=== PATIENT | female | born 1930 | race Caucasian/White ===

== ENCOUNTER → 2016-04-08 | Outpatient (REF) | payer OTHER, MEDICAID ==
[~2016-04-08] MED LIST: /ESCI20TA OR; /FENT50PA TD; /FENT75PA TD; /MOXI40TA OR; /PANT40TA OR; ACET-654 PO; ACET65TA OR; ALBU0.63 INH; ALBU83IN INH; AMBI10TA OR; AMBI5TAB OR; ANEXSIA PO; ARIC10TA PO; ARIC5TAB OR; ARTH1TAB PO; ASPI325T OR; ASPI325T5 PO; ATIV0.5T3 PO; BACL10TA2 OR; CARV25TA PO; CIPR250T2 PO; CIPR25SS OR; COLA100C2 OR; COLA50CA3 PO; CORE25TA PO; CRES5TAB PO; DIOV80TA OR; DIOV80TA PO; DIOVAN PO; DIOVAN/HCTZ PO; DOCU100C PO; DULC10SU9 PR; FERR325T OR; FLEEENE4 PR; FOLI1TAB OR; FURO20TA2 OR; GABA-279 PO; GABAPOW41 PO; GLUC5TAB3 PO; HCTZ PO; HUMA100I SC; IBUP200C PO; IMDU30TA PO; IMDU60TA PO; INDA1.252 PO; INDA125TA PO; ISOS30TA4 OR; ISOS30TAB PO; LASI20TA OR; LEVA500T PO; LEVO75TA2 OR; LEVO75TA4 PO; LIDO1DIS2 TD; LIDO5DIS EX; LOPR50TA OR; LOPR50TA PO; LOPRESSOR PO; Lioresal PO; MAGN64TASA PO; MAGNESIUM OXIDE PO; MAVI4TAB OR; METF500T PO; METF500T4 OR; MIRA255PW PO; MIRA3350 PO; MUCI600T34 PO; MYLASSUD PO; NEUR100C OR; NEUR100C PO; NITR0.3S SL; NITR0.4S SL; NORV5TAB OR; NYSTPOW TOP; Neurontin PO; Norvasc PO; OMEP20TA7 OR; PERC5TAB8 OR; PERC5TAB8 PO; POLYBTL PO; POTA10CA32 PO; RISP1TAB3 PO; ROSU10TA OR; ROSU10TA PO; SENN8.6T5 OR; SENO8.6T5 OR; SYNT100T PO; TOPR25TA PO; TRAM50TA2 OR; TRAZ25TA PO; TRAZO50TA PO; TUMS500C OR; VALS80CA OR; VITA100027 OR; VITA100T OR; XANA0.5T OR; [UNRECOGNIZED DRUG - CODE] PO; [UNRECOGNIZED DRUG - CODE] PO; [UNRECOGNIZED DRUG - CODE] PO; lozol PO; oxycodone hcl PO; pradaxa PO; tramadol PO
== END ==
LOC: SKLAB7 07:00
PROVIDERS: ATTEND Family Medicine
DX: E78.5 Hyperlipidemia, unspecified (principal)

== ENCOUNTER → 2016-04-21 | Outpatient (REF) | payer OTHER, MEDICAID | LOC: SKLAB8 00:35 | PROVIDERS: ATTEND Family Medicine | DX: R19.7 Diarrhea, unspecified (principal) ==

== ENCOUNTER → 2016-05-06 | Outpatient (REF) | payer OTHER, MEDICAID ==
[2016-05-06 09:32] LABS: MEAN CORPUSCULAR HEMOGLOBIN 30.2 pg (27.0-33.0); MEAN CORPUSCULAR HGB CONC 32.1 g/dl (32.0-36.5); MEAN CORPUSCULAR VOLUME 94.2 fl (80.0-96.0); RED CELL DISTRIBUTION WIDTH 12.9 % (11.5-14.5); WHITE BLOOD COUNT 11.7 K/mm3 (4.0-10.0)
[2016-05-06 10:05] LABS: ALBUMIN 3.2 GM/DL (3.2-5.2); ALBUMIN/GLOBULIN RATIO 0.91 (1.00-1.93); BILIRUBIN,TOTAL 0.2 MG/DL (0.2-1.0); CALCIUM LEVEL 9.6 MG/DL (8.8-10.2); CREATININE FOR GFR 1.14 MG/DL (0.55-1.02); GLOMERULAR FILTRATION RATE 48.3 (>32); POTASSIUM SERUM 4.9 MEQ/L (3.5-5.1); TOTAL PROTEIN 6.7 GM/DL (6.4-8.2)
== END ==
LOC: SKLAB7 07:00
PROVIDERS: ATTEND Family Medicine
DX: D64.9 Anemia, unspecified (principal); E11.9 Type 2 diabetes mellitus without complications

== ENCOUNTER → 2016-05-17 | Outpatient (REF) | payer OTHER, MEDICAID | LOC: SKLAB7 10:53 → M LAB REF 10:53 | PROVIDERS: ATTEND Family Medicine | DX: D64.9 Anemia, unspecified (principal); E11.9 Type 2 diabetes mellitus without complications ==

== ENCOUNTER → 2016-06-03 | Outpatient (REF) | payer OTHER, MEDICAID | LOC: SKLAB7 07:00 | PROVIDERS: ATTEND Family Medicine | DX: E03.9 Hypothyroidism, unspecified (principal) ==

== ENCOUNTER → 2016-08-05 | Outpatient (REF) | payer MEDICARE, MEDICAID, OTHER ==
[~2016-08-05] MED LIST changes: +CRES10TA32 PO
[2016-08-05 09:11] LABS: MEAN CORPUSCULAR HGB CONC 32.5 g/dl (32.0-36.5); MEAN CORPUSCULAR VOLUME 95.5 fl (80.0-96.0); RED CELL DISTRIBUTION WIDTH 12.5 % (11.5-14.5); WHITE BLOOD COUNT 10.7 K/mm3 (4.0-10.0)
[2016-08-05 09:31] LABS: ALBUMIN/GLOBULIN RATIO 0.71 (1.00-1.93); BILIRUBIN,TOTAL 0.2 MG/DL (0.2-1.0); CALCIUM LEVEL 9.7 MG/DL (8.8-10.2); CREATININE FOR GFR 1.1 MG/DL (0.55-1.02); GLOMERULAR FILTRATION RATE 50.3 (>32); POTASSIUM SERUM 4.6 MEQ/L (3.5-5.1); TOTAL PROTEIN 7.2 GM/DL (6.4-8.2)
== END ==
LOC: SKLAB7 10:39
PROVIDERS: ATTEND Family Medicine
DX: E87.6 Hypokalemia (principal); E11.9 Type 2 diabetes mellitus without complications; I10 Essential (primary) hypertension

== ENCOUNTER → 2016-10-06 | Outpatient (REF) | payer MEDICARE, MEDICAID, OTHER ==
[~2016-10-06] MED LIST changes: -ACET-654 PO; +ACET1TAB17 PO; +ALPR0.25 PO; +ARIC1TAB2 PO; +BACITAB PO; +CLEO150C PO; +DIFL200T PO; -DOCU100C PO; +DOCU100C16 PO; +DULC10SU2 PR; +HUMA100I3 SC; -IBUP200C PO; +IBUP200C10 PO; +LEVA1TAB2 PO; -LEVA500T PO; +LEVE1INJ5 SC; -METF500T PO; +METF500T13 PO; -MUCI600T34 PO; +MUCI600T37 PO; +SENO8.6T5 PO
== END ==
LOC: SKLAB7 18:35
PROVIDERS: ATTEND Family Medicine
DX: R41.82 Altered mental status, unspecified (principal); Z79.899 Other long term (current) drug therapy

== ENCOUNTER → 2016-10-06 | Outpatient (REF) | payer MEDICARE, MEDICAID, OTHER | LOC: SKLAB7 23:11 | PROVIDERS: ATTEND Family Medicine | DX: R73.09 Other abnormal glucose (principal) ==

== ENCOUNTER → 2016-10-07 | Outpatient (REF) | payer MEDICARE, MEDICAID, OTHER ==
[2016-10-07 10:41] LABS: BASO % 0.2 % (0.0-1.0); EOS % 0.1 % (0.0-3.0); LARGE UNSTAINED CELL # 0.2 K/mm3 (0.0-0.4); LYMPH # 0.6 K/mm3 (1.5-4.5); LYMPH % 3.1 % (24.0-44.0); MEAN CORPUSCULAR HEMOGLOBIN 31.8 pg (27.0-33.0); MEAN CORPUSCULAR HGB CONC 33.8 g/dl (32.0-36.5); MEAN CORPUSCULAR VOLUME 94.3 fl (80.0-96.0); MONO # 0.4 K/mm3 (0.0-0.8); MONO % 2.4 % (0.0-5.0); NEUTROPHILS # 14.8 K/mm3 (1.8-7.7); NEUTROPHILS % 93.3 % (36.0-66.0); PLATELET COUNT, AUTOMATED 309 k/mm3 (150-450); RED CELL DISTRIBUTION WIDTH 13.2 % (11.5-14.5); WHITE BLOOD COUNT 15.9 K/mm3 (4.0-10.0)
[2016-10-07 11:13] LABS: ALBUMIN 2.7 GM/DL (3.2-5.2); ALBUMIN/GLOBULIN RATIO 0.57 (1.00-1.93); BILIRUBIN,TOTAL 0.3 MG/DL (0.2-1.0); CALCIUM LEVEL 10.7 MG/DL (8.8-10.2); CREATININE FOR GFR 1.85 MG/DL (0.55-1.02); GLOMERULAR FILTRATION RATE 27.6 (>32); POTASSIUM SERUM 3.5 MEQ/L (3.5-5.1); TOTAL PROTEIN 7.4 GM/DL (6.4-8.2)
== END ==
LOC: SKLAB7 09:26
PROVIDERS: ATTEND Family Medicine
DX: A41.9 Sepsis, unspecified organism (principal)

== ENCOUNTER → 2016-10-08 | Outpatient (REF) | payer MEDICARE, MEDICAID, OTHER ==
[2016-10-08 14:07] LABS: CALCIUM LEVEL 9.8 MG/DL (8.8-10.2); CREATININE FOR GFR 2.93 MG/DL (0.55-1.02); GLOMERULAR FILTRATION RATE 16.2 (>32); POTASSIUM SERUM 3.8 MEQ/L (3.5-5.1)
== END ==
LOC: SKLAB7 12:39
PROVIDERS: ATTEND Family Medicine
DX: E86.0 Dehydration (principal)

== ENCOUNTER → 2016-10-10 | Outpatient (REF) | payer MEDICARE, MEDICAID, OTHER ==
[2016-10-10 07:19] LABS: CALCIUM LEVEL 8.8 MG/DL (8.8-10.2); CREATININE FOR GFR 2.81 MG/DL (0.55-1.02); POTASSIUM SERUM 3.4 MEQ/L (3.5-5.1)
[2016-10-10 10:14] LABS: MEAN CORPUSCULAR HEMOGLOBIN 31.4 pg (27.0-33.0); MEAN CORPUSCULAR HGB CONC 33.4 g/dl (32.0-36.5); MEAN CORPUSCULAR VOLUME 93.9 fl (80.0-96.0); RED CELL DISTRIBUTION WIDTH 13.3 % (11.5-14.5); WHITE BLOOD COUNT 13.5 K/mm3 (4.0-10.0)
== END ==
LOC: SKLAB7 04:06
PROVIDERS: ATTEND Family Medicine
DX: N39.0 Urinary tract infection, site not specified (principal); N18.9 Chronic kidney disease, unspecified

== ENCOUNTER → 2016-10-11 | Outpatient (REF) | payer MEDICARE, MEDICAID, OTHER ==
[2016-10-11 07:53] LABS: BASO % 0.2 % (0.0-1.0); EOS # 0.3 K/mm3 (0.0-0.50); EOS % 3.1 % (0.0-3.0); LARGE UNSTAINED CELL # 0.4 K/mm3 (0.0-0.4); LARGE UNSTAINED CELL % 3.3 % (0.0-4.0); LYMPH # 1.5 K/mm3 (1.5-4.5); LYMPH % 10.4 % (24.0-44.0); MEAN CORPUSCULAR HEMOGLOBIN 31.3 pg (27.0-33.0); MEAN CORPUSCULAR HGB CONC 33.3 g/dl (32.0-36.5); MEAN CORPUSCULAR VOLUME 93.9 fl (80.0-96.0); MONO # 0.4 K/mm3 (0.0-0.8); MONO % 3.7 % (0.0-5.0); NEUTROPHILS # 8.5 K/mm3 (1.8-7.7); NEUTROPHILS % 79.4 % (36.0-66.0); PLATELET COUNT, AUTOMATED 242 k/mm3 (150-450); RED CELL DISTRIBUTION WIDTH 13.5 % (11.5-14.5); WHITE BLOOD COUNT 10.7 K/mm3 (4.0-10.0)
[2016-10-11 08:06] LABS: CALCIUM LEVEL 8.4 MG/DL (8.8-10.2); CREATININE FOR GFR 2.43 MG/DL (0.55-1.02); GLOMERULAR FILTRATION RATE 20.1 (>32); POTASSIUM SERUM 3.3 MEQ/L (3.5-5.1)
== END ==
LOC: SKLAB7 07:00
PROVIDERS: ATTEND Family Medicine
DX: N18.9 Chronic kidney disease, unspecified (principal)

== ENCOUNTER → 2016-10-19 | Outpatient (REF) | payer MEDICARE, MEDICAID, OTHER ==
[2016-10-19 09:30] LABS: BASO % 0.4 % (0.0-1.0); EOS # 0.3 K/mm3 (0.0-0.50); EOS % 2.7 % (0.0-3.0); LARGE UNSTAINED CELL # 0.2 K/mm3 (0.0-0.4); LARGE UNSTAINED CELL % 1.3 % (0.0-4.0); LYMPH # 0.7 K/mm3 (1.5-4.5); LYMPH % 6.2 % (24.0-44.0); MEAN CORPUSCULAR HEMOGLOBIN 30.8 pg (27.0-33.0); MEAN CORPUSCULAR HGB CONC 32.6 g/dl (32.0-36.5); MEAN CORPUSCULAR VOLUME 94.5 fl (80.0-96.0); MONO # 0.3 K/mm3 (0.0-0.8); MONO % 2.6 % (0.0-5.0); NEUTROPHILS # 9.7 K/mm3 (1.8-7.7); NEUTROPHILS % 86.8 % (36.0-66.0); PLATELET COUNT, AUTOMATED 506 k/mm3 (150-450); RED CELL DISTRIBUTION WIDTH 13.9 % (11.5-14.5); WHITE BLOOD COUNT 11.2 K/mm3 (4.0-10.0)
[2016-10-19 09:35] LABS: CALCIUM LEVEL 9.8 MG/DL (8.8-10.2); CREATININE FOR GFR 1.41 MG/DL (0.55-1.02); GLOMERULAR FILTRATION RATE 37.7 (>32); POTASSIUM SERUM 4.3 MEQ/L (3.5-5.1)
== END ==
LOC: SKLAB7 07:00
PROVIDERS: ATTEND Family Medicine
DX: A41.9 Sepsis, unspecified organism (principal)

== ENCOUNTER → 2016-10-22 | Outpatient (REF) ==
[2016-10-22 13:05] LABS: MEAN CORPUSCULAR HEMOGLOBIN 31.1 pg (27.0-33.0); MEAN CORPUSCULAR HGB CONC 32.5 g/dl (32.0-36.5); MEAN CORPUSCULAR VOLUME 95.8 fl (80.0-96.0); RED CELL DISTRIBUTION WIDTH 14.4 % (11.5-14.5); WHITE BLOOD COUNT 10.9 K/mm3 (4.0-10.0)
[2016-10-22 13:21] LABS: CALCIUM LEVEL 10.2 MG/DL (8.8-10.2); CREATININE FOR GFR 1.25 MG/DL (0.55-1.02); GLOMERULAR FILTRATION RATE 43.4 (>32); POTASSIUM SERUM 4.4 MEQ/L (3.5-5.1)
== END ==
LOC: SKLAB7 12:21
PROVIDERS: ATTEND Family Medicine
DX: N18.9 Chronic kidney disease, unspecified (principal)

== ENCOUNTER → 2016-10-29 | Outpatient (REF) | payer MEDICARE, OTHER, MEDICAID | LOC: SKLAB7 21:47 | PROVIDERS: ATTEND Family Medicine | DX: R73.09 Other abnormal glucose (principal) ==

== ENCOUNTER → 2016-10-30 | Outpatient (REF) | payer MEDICARE, OTHER, MEDICAID | LOC: SKLAB7 20:45 | PROVIDERS: ATTEND Family Medicine | DX: R73.09 Other abnormal glucose (principal) ==

== ENCOUNTER → 2016-10-31 | Outpatient (REF) | payer MEDICARE, OTHER, MEDICAID ==
[2016-10-31 07:12] LABS: MEAN CORPUSCULAR HGB CONC 32.3 g/dl (32.0-36.5); RED CELL DISTRIBUTION WIDTH 14.3 % (11.5-14.5); WHITE BLOOD COUNT 21.8 K/mm3 (4.0-10.0)
[2016-10-31 07:40] LABS: CREATININE FOR GFR 1.92 MG/DL (0.55-1.02); GLOMERULAR FILTRATION RATE 26.4 (>32); POTASSIUM SERUM 4.2 MEQ/L (3.5-5.1)
[2016-10-31 15:04] LABS: MICROSCOPIC INDICATED? MAN YES (NO)
[2016-10-31 15:31] LABS: BACTERIA, URINE MOD AMOUNT; TRANSITIONAL EPI CELLS, URINE MOD AMOUNT /hpf; WBC, URINE TNTC /hpf (0-3)
[2016-10-31 15:32] LABS: HYALINE CAST, URINE NONE SEEN /lpf (0-1); SQUAMOUS EPITHELIAL CELL URINE SMALL AMOUNT /hpf (SMALL AMT)
[2016-10-31 15:33] LABS: MICROSCOPIC EXAM PERFORMED
== END ==
LOC: SKLAB7 01:58
PROVIDERS: ATTEND Family Medicine
DX: R73.09 Other abnormal glucose (principal); D72.829 Elevated white blood cell count, unspecified

== ENCOUNTER → 2016-10-31 | Outpatient (REF) | payer MEDICARE, OTHER, MEDICAID | LOC: SKLAB7 14:16 | PROVIDERS: ATTEND Family Medicine | DX: D72.829 Elevated white blood cell count, unspecified (principal) ==

== ENCOUNTER → 2016-10-31 | Outpatient (REF) | payer MEDICARE, OTHER, MEDICAID | LOC: SKLAB7 12:20 | PROVIDERS: ATTEND Family Medicine | DX: D72.829 Elevated white blood cell count, unspecified (principal) ==

== ENCOUNTER 2016-11-03 10:29 | Inpatient (IN) | payer MEDICARE, OTHER, MEDICAID ==
[~2016-11-03 10:29] MED LIST changes: -ALPR0.25 PO; -BACITAB PO; -CLEO150C PO; -DIFL200T PO; -DULC10SU2 PR; -HUMA100I3 SC; -LEVE1INJ5 SC; -SENO8.6T5 PO
[2016-11-03] MEDS ORDERED: CLEO150C PO (10:48)
[2016-11-03] MEDS ORDERED: HUMA100I3 SC (10:48)
[2016-11-03] MEDS ORDERED: DIFL200T PO (10:48)
[2016-11-03] MEDS ORDERED: LEVE1INJ5 SC (10:52)
[2016-11-03] MEDS ORDERED: ALPR0.25 PO (10:55)
[2016-11-03] MEDS ORDERED: BACITAB PO (10:55)
[2016-11-03] MEDS ORDERED: SENO8.6T5 PO (10:55)
[2016-11-03] MEDS ORDERED: DULC10SU2 PR (10:55)
[2016-11-03] MEDS ORDERED: NS 1,000 ML IV SCH (10:59)
[2016-11-03 11:55] LABS: BASO # 0.1 K/mm3 (0.0-0.2); BASO % 0.4 % (0.0-1.0); EOS # 0.1 K/mm3 (0.0-0.50); EOS % 0.6 % (0.0-3.0); LARGE UNSTAINED CELL # 0.3 K/mm3 (0.0-0.4); LARGE UNSTAINED CELL % 1.7 % (0.0-4.0); LYMPH # 2.2 K/mm3 (1.5-4.5); LYMPH % 13.3 % (24.0-44.0); MEAN CORPUSCULAR HEMOGLOBIN 30.4 pg (27.0-33.0); MEAN CORPUSCULAR HGB CONC 31.9 g/dl (32.0-36.5); MEAN CORPUSCULAR VOLUME 95.3 fl (80.0-96.0); MONO # 0.5 K/mm3 (0.0-0.8); MONO % 3.6 % (0.0-5.0); NEUTROPHILS # 11.8 K/mm3 (1.8-7.7); NEUTROPHILS % 80.3 % (36.0-66.0); PLATELET COUNT, AUTOMATED 287 k/mm3 (150-450); WHITE BLOOD COUNT 14.7 K/mm3 (4.0-10.0)
[2016-11-03 12:01] LABS: INR 1.34
[2016-11-03 12:19] LABS: ALBUMIN 2.2 GM/DL (3.2-5.2); ALBUMIN/GLOBULIN RATIO 0.46 (1.00-1.93); ALKALINE PHOSPHATASE 135 U/L (45-117); ALT/SGPT 750 U/L (12-78); ANION GAP 9 MEQ/L (8-16); BILIRUBIN,DIRECT < 0.1 MG/DL (0.0-0.2); BILIRUBIN,TOTAL 0.3 MG/DL (0.2-1.0); BLOOD UREA NITROGEN 44 MG/DL (7-18); CARBON DIOXIDE LEVEL 21 MEQ/L (21-32); CHLORIDE LEVEL 111 MEQ/L (98-107); CREATININE FOR GFR 1.69 MG/DL (0.55-1.02); GLOMERULAR FILTRATION RATE 30.6 (>32); GLUCOSE, FASTING 143 MG/DL (83-110); POTASSIUM SERUM 3.7 MEQ/L (3.5-5.1); SODIUM LEVEL 141 MEQ/L (136-145)
[2016-11-03 12:21] LABS: YEAST LIKE CELL URINE AUTO LARGE
[2016-11-03 12:22] LABS: AST/SGOT 1256 U/L (15-37)
--- NOTE | 2016-11-03 12:24 | REP ---
CT ABDOMEN AND PELVIS WITHOUT IV CONTRAST: CT abdomen and pelvis performed without oral or IV contrast. Sagittal and coronal reconstruction images are performed. COMPARISON: 06/25/2012 In the visualized lung bases, there are patchy infiltrates and small bilateral pleural effusions. The liver is grossly unremarkable. The patient has had a prior cholecystectomy. The spleen and adrenals appear unchanged. The pancreas appears unchanged. The patient appears to have had right nephrectomy. There are several left renal cysts again noted without left-sided hydronephrosis. There is no left hydroureter. There are moderate atherosclerotic calcifications of the abdominal aorta without aneurysm. There is no adenopathy. There is on free air or free fluid. There is no bowel wall thickening. There is no evidence of a pelvic mass. Urinary bladder is mildly distended and grossly unremarkable. IMPRESSION: Bibasilar infiltrates and effusions in the visualized lungs. No acute abnormalities seen in the abdomen or pelvis. Signed by Tarun Lujan MD 11/03/2016 05:10 P
--- NOTE | 2016-11-03 13:07 | REP ---
PORTABLE CHEST: AP portable view of the chest is performed. Mild bibasilar infiltrates and effusions are present. The patient is rotated toward the right. The heart appears mildly enlarged. IMPRESSION: Mild bibasilar infiltrates and effusions. Signed by Tarun Lujan MD 11/03/2016 05:10 P
[2016-11-03 13:29] LABS: ABG HCO3 18.8 MEQ/L (22.0-26.0); ABG PARTIAL PRESSURE CO2 34.6 mmHg (35.0-45.0); ABG PARTIAL PRESSURE O2 95.5 mmHg (75.0-100.0); ABG STANDARD HCO3 19.5 MEQ/L (22.0-26.0); ABG TOTAL CO2 19.9 MEQ/L (23.0-31.0); ABG pH (ARTERIAL) 7.353 UNITS (7.350-7.450)
--- NOTE | 2016-11-03 14:13 | REP ---
CT of the chest without IV contrast: Comparisons are the portable chest earlier today and chest CT dated 06/12/2014. The patient is rotated to the right. There are bilateral pleural effusions. The right hemidiaphragm is elevated. There is a right lower lobe infiltrate. The unenhanced thoracic aorta is unremarkable. Cardiac size is mildly enlarged. There is extensive coronary vascular atheroma. No pericardial effusion. The visualized upper abdomen is unremarkable except for renal cortical cyst at the upper pole left kidney. There are surgical clips in the gallbladder fossa. Impression: Bilateral pleural effusions. Marked elevation of the right hemidiaphragm. Right lower lobe infiltrate. Extensive coronary vascular calcified atheroma Signed by Tarun Uribe MD 11/03/2016 02:05 P
[2016-11-03] MEDS ORDERED: DEXTROSE 50% 50 ML SYRINGE IV PRN (14:15)
[2016-11-03] MEDS ORDERED: GLUCAGON FOR INJ 1 MG VIAL (J1610) SC PRN (14:15)
[2016-11-03] MEDS ORDERED: ONDANSETRON 4MG/2ML VIAL (J2405) IV PRN (14:15)
[2016-11-03] MEDS ORDERED: ACETAMINOPHEN TAB 650MG DOSE (2X325MG) PO PRN (14:15)
[2016-11-03] MEDS ORDERED: GLUCOSE 4 GM CHEW TABLET PO PRN (14:15)
[2016-11-03] MEDS ORDERED: ASPIRIN 81 MG CHEW TABLET PO ONE (14:30)
[2016-11-03] MEDS ORDERED: METOPROLOL 5 MG/5 ML VIAL As Ordered ONE (14:30)
[2016-11-03] MEDS: METOPROLOL 5 MG/5 ML VIAL IV SCH ×3 (14:30→14:40)
[2016-11-03 14:40] VITALS: BP 212/112
[2016-11-03] MEDS ORDERED: MORPHINE 2 MG/ML 1ML SYRINGE IV ONE (14:45)
[2016-11-03] MEDS ORDERED: AMIODARONE HCL 150 MG in APPROPRIATE DILUENT 1 EA IV STA (14:45)
[2016-11-03] MEDS ORDERED: MORPHINE 2 MG/ML 1ML SYRINGE As Ordered ONE (14:47)
[2016-11-03] MEDS ORDERED: AMIODARONE HCL 150 MG/100 ML PREMIXED BAG (NEXTERONE) As Ordered ONE (14:47)
[2016-11-03] MEDS ORDERED: AMIODARONE 150MG/3ML INJ (J0282) As Ordered ONE (14:52)
[2016-11-03 14:54] VITALS: BP 124/51
[2016-11-03] MEDS ORDERED: ENOXAPARIN 100MG/1ML SYRINGE (J1650) SC SCH (15:00)
--- NOTE | 2016-11-03 15:23 | HPE ---
DATE OF ADMISSION: 11/03/2016 This is a patient of Dr. Eastman's at [facility]. CHIEF COMPLAINT: Hypotension. SUMMARY OF PRESENTATION: This is an 86-year-old who has been complaining of occasional pain in her abdomen. According to nursing notes, it looks like perhaps occasionally right-sided. Does not appear particularly severe. They have been treating her with intravenous (IV) fluids for what was presumed to be a urinary tract infection. Perhaps also with antifungals and antibiotics within the last week. Blood pressure had been elevated with IV fluids containing dextrose. This morning she was hypotensive. She was sent to the hospital for evaluation. She is relatively a poor historian. During the course of workup was noted to have a troponin-elevated liver function tests (LFTs) and ischemic findings on EKG. I was called for admission, as the family and the patient had declined patient to [place] for definitive therapy for what is presumed to be an ST-elevated myocardial infarction (AK). Currently the patient is in no pain. PAST MEDICAL HISTORY: Notable for: 1. Pneumonia. 2. Respiratory failure. 3. Pneumonia with respiratory failure. 4. Pneumothorax status post chest tube. 5. Hyperlipidemia. 6. Hypertensive heart disease. 7. Peripheral vascular disease. 8. Neuropathy. 9. Constipation. 10. Malnutrition. 11. Longstanding complaints of right-sided abdominal pain with no physiologic condition identified. 12. Diabetes, type 2. 13. Hypothyroidism. 14. Hypoalbuminemia. 15. Osteoarthritis. 16. Spinal stenosis. 17. Back pain with lumbar radiculopathy. 18. Right knee valgus deformity, nonambulatory. 19. Stage II pressure ulcer, sacral, during hospital stay in 2014. 20. Dementia. 21. Depression. 22. Insomnia. 23. Anemia. 24. Renal cell carcinoma. FAMILY HISTORY: Not pertinent. MEDICATION LIST: Includes Diflucan, Bacid, Humalog, Senokot-S, potassium chloride, glipizide, Tylenol, Synthroid, and is being reviewed. ALLERGIES: Currently she has listed allergies to PENICILLIN, SULFA DRUGS, TETRACYCLINE, HYDROXYCHLOROQUINE. PHYSICAL EXAMINATION: She is awake and answering simple questions. No acute distress. She seems to know she is in the hospital. Is quite positive that she does not want to go to [place]. Temperature is 97.5, pulse 102, respiratory rate is 24, blood pressure is 104/74, 99%. Head is normocephalic. She wears corrective lenses. Eyes show evidence of cataract extraction, anicteric, not injected. Mucous membranes are moist. Neck supple, thick. Breathing is diminished in the bases. There are no wheezes. She is tachypneic on my exam. Heart is distant sounding. Normal S1, S2, tachycardic. Radial pulses are 2+. Capillary refill is less than 2 seconds. Abdomen is soft, doughy. On repeated exams, sometimes has right upper quadrant tenderness, sometimes does not. There is no lower extremity edema. Sensation appears to be grossly intact on both feet. There are no foot lesions noted. White blood cell count 14.7, hemoglobin 11.1, platelets 287. Sodium 141, potassium 3.7, chloride 111, carbon dioxide 21, BUN 44, creatinine 1.69, glucose 143, lactic acid 1.5. AST is 1256, ALT 750, alkaline phosphatase 135. CK 212, troponin I 14.7. BNP is 4810. Lipase 297. Blood and urine cultures are pending. Chest CT shows evidence of bilateral pleural effusions and possible infiltrates. I suspect atelectasis. Abdominal CT shows no acute abnormalities in the abdomen or pelvis. EKG showed septal changes. Official results are pending. Those changes are consistent with ischemia. ASSESSMENT: This is an 86-year-old with suspected ST-elevated m myocardial infarction (AK), not pursuing and I suspect will succumb to her illness. I have discussed this with the family at bedside, two sons and a daughter. They wish to support mother's wishes. PLAN: 1. Cardiovascular. Will watch for signs of arrhythmia, which has, of course, occurred during the course of this dictation. We have attempted to control elevated heart rate with beta blockade and giving amiodarone at this point. Patient specifically does not wish for any defibrillation. I have pursued antiplatelet and anticoagulation therapy in the form of aspirin and Lovenox. Timing of this AK is likely within the last day or two, which has resulted in decompensated heart failure and arrhythmias, which has also resulted in decreased perfusion to her liver, resulting in shock liver. The possibility of infection is also considered, as the patient has been partially treated with antibiotics and antifungals. Will continue antibiotics currently. 2. Patient has diabetes with elevated blood sugars, most likely reactive in nature. Will continue with sliding-scale insulin at this point. I believe discontinuing her dextrose-containing fluid will also help. 3. Patient has chronic right-sided abdominal pain, acute findings in that regard. 4. Patient has a history of nephrectomy and colon resection for cancer. 5. Patient has hyperlipidemia. Has been started on Lipitor 80. 6. Patient has a pre-existing DO NOT RESUSCITATE/DO NOT INTUBATE, and is approaching likely comfort care, although the family would like to pursue minimal medical intervention at this point.
[2016-11-03] MEDS ORDERED: HumaLOG INSULIN (NovoLOG) PER UNIT SC SCH ×2 (17:30→21:00)
[2016-11-03] MEDS ORDERED: METOPROLOL TART 25 MG TABLET PO SCH (18:00)
[2016-11-03] MEDS ORDERED: ATORVASTATIN 20 MG TAB PO SCH (21:00)
[2016-11-04] MEDS ORDERED: ASPIRIN ENTERIC 325 MG TAB PO SCH (09:00)
--- NOTE | 2016-11-04 13:16 | HPE ---
DATE OF ADMISSION: 11/03/2016 ADDENDUM TO HISTORY AND PHYSICAL Patient continued to have wide complex and fast tachycardia, to be associated with neck discomfort. She was then given amiodarone and her heart rate steadied right around 100, and again, in a continuing wide complex, most likely associated with her myocardial infarction. Then, at 1500 hours, she went into asystole and succumbed to her illness. Consistent with the patient and her family's wishes, she was allowed to pass without further intervention.
--- NOTE | 2016-11-08 19:31 | ECGEPIP ---
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
--- NOTE | 2016-11-08 19:31 | ECGEPIP ---
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
== END 2016-11-03 15:00 | disposition expired ==
LOC: M ED 10:29 → M ED INP 14:13
PROVIDERS: ADMIT Internal Medicine; ATTEND Family Medicine
DX: I21.3 ST elevation (STEMI) myocardial infarction of unspecified site (principal); K72.00 Acute and subacute hepatic failure without coma; I47.2 Ventricular tachycardia; E46 Unspecified protein-calorie malnutrition; I50.9 Heart failure, unspecified; E78.5 Hyperlipidemia, unspecified; I73.9 Peripheral vascular disease, unspecified; K59.00 Constipation, unspecified; E03.9 Hypothyroidism, unspecified; E11.40 Type 2 diabetes mellitus with diabetic neuropathy, unspecified; F03.90 Unspecified dementia, unspecified severity, without behavioral disturbance, psychotic disturbance, mood disturbance, and anxiety; F32.9 Major depressive disorder, single episode, unspecified; Z79.4 Long term (current) use of insulin; Z79.899 Other long term (current) drug therapy; Z88.0 Allergy status to penicillin; Z88.2 Allergy status to sulfonamides; Z88.1 Allergy status to other antibiotic agents; Z66 Do not resuscitate; Z90.5 Acquired absence of kidney; Z85.528 Personal history of other malignant neoplasm of kidney

== ENCOUNTER → 2016-11-03 | Outpatient (REF) | payer MEDICARE, OTHER, MEDICAID | LOC: SKLAB7 07:09 | PROVIDERS: ATTEND Family Medicine | DX: R50.9 Fever, unspecified (principal); Z53.9 Procedure and treatment not carried out, unspecified reason ==

== ENCOUNTER → 2016-11-03 | Outpatient (REF) | payer MEDICARE, OTHER, MEDICAID | LOC: SKLAB7 00:47 | PROVIDERS: ATTEND Family Medicine | DX: R73.09 Other abnormal glucose (principal) ==